=== PATIENT | female | born 1990 | race Caucasian/White ===

== ENCOUNTER 2024-05-21 23:58 | Observation (INO) | payer OTHER ==
--- NOTE | 2024-05-22 01:13 | ERPHSYRPT ---
- History of Present Illness Time Seen by Provider: 05/22/24 01:03 Historian: patient Exam Limitations: no limitations Patient Subjective Stated Complaint: Pt. stated, "I've been having upper abdominal pain for two days and i vomited a couple times. I've been trying to tough it out but it keeps getting worse." Triage Nursing Assessment: Pt. A&Ox4, Resp even unlabored. In NAD. Skin P/WD, Able to move all four ext. without difficulty, Ambulated to room without difficulty. Physician History: For the past 3 days pt has had intermittent sharp non-radiating upper abdominal pain up to a 10/10 in severity with episodes lasting up to 25 minutes and vomiting x6 without blood; last BM was yesterday & wnl. Pt denies chest pain, shortness of air, fever. Allergies/Adverse Reactions: No Known Drug Allergies Allergy (Verified 05/22/24 00:26) Home Medications: No Reportable Medications [No Reported Medications] 05/22/24 [History] Hx Tetanus, Diphtheria Vaccination/Date Given: Yes Hx Influenza Vaccination/Date Given: No Hx Pneumococcal Vaccination/Date Given: No Immunizations Up to Date: No Travel Risk - International Travel Have you traveled outside of the country in past 3 weeks: No - Emerging Infectious Disease Are you exhibiting symptoms associated with any current EIDs: Yes Symptoms: Abdominal Pain - Review of Systems Constitutional: No Fever Respiratory: No Dyspnea Cardiac: No Chest Pain Abdominal/Gastrointestinal: Abdominal Pain, Nausea, Vomiting, Diarrhea Neurological: No Headache - Past Medical History Pertinent Past Medical History: No Neurological History: No Pertinent History ENT History: No Pertinent History Cardiac History: No Pertinent History Respiratory History: No Pertinent History Endocrine Medical History: No Pertinent History Musculoskeletal History: No Pertinent History GI Medical History: No Pertinent History History: No Pertinent History Psycho-Social History: No Pertinent History Female Reproductive Disorders: No Pertinent History - Past Surgical History Past Surgical History: Yes Neuro Surgical History: No Pertinent History Cardiac: No Pertinent History Respiratory: No Pertinent History Gastrointestinal: No Pertinent History Genitourinary: No Pertinent History Musculoskeletal: No Pertinent History Female Surgical History: No Pertinent History Other Surgical History: orthopedic surgery on right leg - Female History Hx Last Menstrual Period: 04/27/2024 Hx Now: No - Social History Smoking Status: Never smoker Exposure to second hand smoke: Yes Drug Use: none - Social Determinants of Health Will the patient participate in the screening: Yes Do you worry about a steady place to live?: No Do you have any problems with any of the following?: No known problems In the past 12 months,have you had to go without utilities?: No Transportation Issues: No Has anyone in your support network made you feel unsafe?: No Have you or anyone in your house had to go without enough: No - Nursing Vital Signs Nursing Vital Signs: Initial Vital Signs Temperature 97.8 F 05/22/24 00:26 Pulse Rate 80 05/22/24 00:26 Respiratory Rate 18 05/22/24 00:26 Blood Pressure 112/70 05/22/24 00:26 O2 Sat by Pulse Oximetry 100 05/22/24 00:26 Pain Scale Pain Intensity 0 - Physical Exam General Appearance: alert Eye Exam: PERRL/EOMI Ears, Nose, Throat Exam: pharynx normal, other (cerumen occlusion of both ears) Neck Exam: normal inspection Respiratory Exam: lungs clear, airway intact Cardiovascular Exam: normal heart sounds Gastrointestinal/Abdomen Exam: No normal bowel sounds (B.S. mildly hyperactive and normotonic) Back Exam: normal inspection Extremity Exam: No pedal edema Neurologic Exam: alert, cooperative Skin Exam: warm, dry SpO2 Interpretation: normal SpO2: 100 O2 Delivery: Room Air - Course Nursing assessment & vital signs reviewed: Yes - CT Exams Abdomen/Pelvis CT Interpretation: Tele-radiologist Report (Mildly bulky left ovary, USG correlation suggested. No acute intra-abdominal abnormality seen.) Ordered Tests: Active Orders 24 hr Category Date Time Status IV Insertion STAT Care 05/22/24 01:13 Active ABDOMEN AND PELVIS W/0 CONTRAS [CT] Stat Exams 05/22/24 01:14 Completed AMYLASE Stat Lab 05/22/24 02:15 Completed CBC W DIFF Stat Lab 05/22/24 02:15 Completed CMP Stat Lab 05/22/24 02:15 Completed CULTURE,URINE Stat Lab 05/22/24 01:40 Received HCG QUALITATIVE, SERUM Stat Lab 05/22/24 02:15 Completed LIPASE Stat Lab 05/22/24 02:15 Completed MAGNESIUM Stat Lab 05/22/24 02:15 Completed UA W/RFX UR CULTURE Stat Lab 05/22/24 01:40 Completed Medication Summary Discontinued Medications Generic Name Dose Route Start Last Admin Trade Name Freq PRN Reason Stop Dose Admin Ceftriaxone Sodium 1 gm in 100 mls @ 200 mls/hr 05/22/24 02:17 05/22/24 02:43 Rocephin 1 Gm / 100 Ml Nacl IV 05/22/24 02:46 200 mls/hr STAT ONE 200 mls/hr Administration Ceftriaxone Sodium Confirm 05/22/24 02:25 Rocephin 1 Gm / 100 Ml Nacl Administered 05/22/24 02:26 Dose 1 gm in 100 mls @ ud IV .STK-MED ONE Ketorolac Tromethamine 30 mg 05/22/24 03:36 Ketorolac Tromethamine 30 Mg/Ml Inj IV 05/22/24 03:37 STAT ONE Morphine Sulfate 4 mg 05/22/24 01:13 05/22/24 02:44 Morphine Sulfate 4 Mg/Ml Injection IV 05/22/24 01:14 4 mg STAT ONE Administration Morphine Sulfate Confirm 05/22/24 02:25 Morphine Sulfate 4 Mg/Ml Injection Administered 05/22/24 02:26 Dose 4 mg .ROUTE .STK-MED ONE Ondansetron HCl 4 mg 05/22/24 01:13 05/22/24 02:43 Ondansetron Hcl 4 Mg/2 Ml Vial IV 05/22/24 01:14 4 mg STAT ONE Administration Ondansetron HCl Confirm 05/22/24 02:24 Ondansetron Hcl 4 Mg/2 Ml Vial Administered 05/22/24 02:25 Dose 4 mg .ROUTE .STK-MED ONE Lab/Rad Data: Laboratory Result Diagrams 05/22/24 02:15 05/22/24 02:15 Laboratory Results 05/22/24 05/22/24 05/22/24 Range/Units 02:15 02:15 02:15 WBC 9.6 (3.98-10.04) x10^3/uL RBC 4.52 (3.93-5.22) x10^6/uL Hgb 10.0 L (11.2-15.7) g/dL Hct 32.5 L (34.1-44.9) % MCV 71.9 L (79.4-94.8) fL MCH 22.1 L (25.6-32.2) pg MCHC 30.8 L (32.2-35.5) g/dL RDW 15.6 H (11.7-14.4) % Plt Count 359 (182-369) x10^3/uL MPV 9.7 (9.4-12.3) fL Gran % 58.8 (34.0-71.1) % Immature Gran % (Auto) 0.3 (0.001-0.429) % Nucleat RBC Rel Count 0.0 (0.00-0.2) % Eos # (Auto) 0.27 (0.04-0.36) x10^3/uL Immature Gran # (Auto) 0.03 (0.001-0.031) x10^3u/L Absolute Lymphs (auto) 2.78 (1.18-3.74) x10^3/uL Absolute Monos (auto) 0.82 (0.24-0.86) x10^3/uL Absolute Nucleated RBC 0.00 (0.00-0.012) x10^3u/L Lymphocytes % 29.0 (19.3-51.7) % Monocytes % 8.6 (4.7-12.5) % Eosinophils % 2.8 (0.7-5.8) % Basophils % 0.5 (0.1-1.2) % Absolute Granulocytes 5.64 (1.56-6.13) x10^3/uL Basophils # 0.05 (0.01-0.08) x10^3/uL Sodium 138 (135-145) mmol/L Potassium 4.1 (3.5-5.1) mmol/L Chloride 104 (98-107) mmol/L Carbon Dioxide 27 (22-30) mmol/L Anion Gap 10.8 (5-15) MEQ/L BUN 9 (7-17) mg/dL Creatinine 0.85 (0.52-1.04) mg/dL Estimated GFR 91.6 ML/MIN Glucose 104 (74-106) mg/dL Calcium 9.5 (8.4-10.2) mg/dL Magnesium 2.0 (1.6-2.3) mg/dL Total Bilirubin 0.30 (0.2-1.3) mg/dL AST 21 (14-36) U/L ALT 16 (0-35) U/L Alkaline Phosphatase 50 (38-126) U/L Serum Total Protein 7.5 (6.3-8.2) g/dL Albumin 4.4 (3.5-5.0) g/dL Amylase 58 (30-110) U/L Lipase 79 (23-300) U/L Serum HCG, Qual NEGATIVE (NEGATIVE) Urine Color (Yellow) Urine Appearance (Clear) Urine pH (4.6-8.0) Ur Specific [place] (1.005-1.030) Urine Protein (Negative) Urine Glucose (UA) (Negative) mg/dL Urine Ketones (Negative) Urine Blood (Negative) Urine Nitrite (Negative) Urine Bilirubin (Negative) Urine Urobilinogen (0.2) mg/dL Ur Leukocyte Esterase (Negative) U Hyaline Cast (Auto) (0-2) /LPF Urine Microscopic RBC (0-5) /HPF Urine Microscopic WBC (0-5) /HPF Ur Epithelial Cells (None Seen) /HPF Urine Bacteria (None Seen) /HPF Urine Culture Reflexed (NO) 05/22/24 Range/Units 01:40 WBC (3.98-10.04) x10^3/uL RBC (3.93-5.22) x10^6/uL Hgb (11.2-15.7) g/dL Hct (34.1-44.9) % MCV (79.4-94.8) fL MCH (25.6-32.2) pg MCHC (32.2-35.5) g/dL RDW (11.7-14.4) % Plt Count (182-369) x10^3/uL MPV (9.4-12.3) fL Gran % (34.0-71.1) % Immature Gran % (Auto) (0.001-0.429) % Nucleat RBC Rel Count (0.00-0.2) % Eos # (Auto) (0.04-0.36) x10^3/uL Immature Gran # (Auto) (0.001-0.031) x10^3u/L Absolute Lymphs (auto) (1.18-3.74) x10^3/uL Absolute Monos (auto) (0.24-0.86) x10^3/uL Absolute Nucleated RBC (0.00-0.012) x10^3u/L Lymphocytes % (19.3-51.7) % Monocytes % (4.7-12.5) % Eosinophils % (0.7-5.8) % Basophils % (0.1-1.2) % Absolute Granulocytes (1.56-6.13) x10^3/uL Basophils # (0.01-0.08) x10^3/uL Sodium (135-145) mmol/L Potassium (3.5-5.1) mmol/L Chloride (98-107) mmol/L Carbon Dioxide (22-30) mmol/L Anion Gap (5-15) MEQ/L BUN (7-17) mg/dL Creatinine (0.52-1.04) mg/dL Estimated GFR ML/MIN Glucose (74-106) mg/dL Calcium (8.4-10.2) mg/dL Magnesium (1.6-2.3) mg/dL Total Bilirubin (0.2-1.3) mg/dL AST (14-36) U/L ALT (0-35) U/L Alkaline Phosphatase (38-126) U/L Serum Total Protein (6.3-8.2) g/dL Albumin (3.5-5.0) g/dL Amylase (30-110) U/L Lipase (23-300) U/L Serum HCG, Qual (NEGATIVE) Urine Color Yellow (Yellow) Urine Appearance Cloudy A (Clear) Urine pH 6.5 (4.6-8.0) Ur Specific [place] 1.020 (1.005-1.030) Urine Protein Negative (Negative) Urine Glucose (UA) Negative (Negative) mg/dL Urine Ketones Negative (Negative) Urine Blood Negative (Negative) Urine Nitrite Negative (Negative) Urine Bilirubin Negative (Negative) Urine Urobilinogen 0.2 (0.2) mg/dL Ur Leukocyte Esterase Small A (Negative) U Hyaline Cast (Auto) NONE SEEN (0-2) /LPF Urine Microscopic RBC 0-2 (0-5) /HPF Urine Microscopic WBC 21-50 A (0-5) /HPF Ur Epithelial Cells Few (None Seen) /HPF Urine Bacteria Many A (None Seen) /HPF Urine Culture Reflexed YES (NO) - Progress Progress: unchanged Discussed with DrRonan: Other (Spoke with & discussed case with Dr. Reno - obs) Will see patient in: hospital (observation) Counseled pt/family regarding: lab results, diagnosis, rad results Medical Desision Making - Diagnostic Testing Diagnostic test were ordered, analyzed, and reviewed by me: Yes Radiological Interpretation: Teleradiologist Report - Departure Departure Disposition: Observation Clinical Impression: UTI (urinary tract infection), Abdominal pain, Vomiting Condition: Stable Critical Care Time: No Referrals: DOCTOR,NO FAMILY [Primary Care Provider] - Follow up/PCP as directed
[2024-05-22 02:00] LABS: Appearance Cloudy (Clear); Bacteria Many /HPF (None Seen); Bilirubin Negative (Negative); Blood Negative (Negative); Epithelial Cells Few /HPF (None Seen); Glucose, Urine Negative (Negative); Hyaline Casts NONE SEEN /LPF (0-2); Ketones Negative (Negative); Leukocyte Esterase Small (Negative); Nitrite Negative (Negative); Ph 6.5 (4.6-8.0); Protein,Urine Dip Negative (Negative); RBC 0-2 /HPF (0-5); Urobilinogen 0.2 mg/dL (0.2); WBC 21-50 /HPF (0-5)
[2024-05-22] MEDS ORDERED: Zofran 4 MG/2 ML VIAL ONE ×2 (02:24→13:15)
[2024-05-22] MEDS ORDERED: ROCEPHIN 1 GM / 100 ML NaCl 1 GM/100 ML IVPB IV ONE (02:25)
[2024-05-22] MEDS ORDERED: MORPHINE SULFATE 4 MG INJ ONE (02:25)
[2024-05-22 02:37] LABS: Absolute Neutrophil Ct (ANC) 5.64 x10^3/uL (1.56-6.13); BASOPHIL % 0.5 % (0.1-1.2); Basophil (Absolute #) 0.05 x10^3/uL (0.01-0.08); Eosinophil % 2.8 % (0.7-5.8); Eosinophil (Absolute #) 0.27 x10^3/uL (0.04-0.36); Hematocrit 32.5 % (34.1-44.9); IMMATURE GRAN # 0.03 x10^3u/L (0.001-0.031); IMMATURE GRAN % 0.3 % (0.001-0.429); Lymphocyte (Absolute #) 2.78 x10^3/uL (1.18-3.74); Mean Cell Volume 71.9 fL (79.4-94.8); Mean Corpuscular Hemoglobin 22.1 pg (25.6-32.2); Mean Corpuscular Hgb Concent. 30.8 g/dL (32.2-35.5); Mean Platelet Volume 9.7 fL (9.4-12.3); Monocyte (Absolute #) 0.82 x10^3/uL (0.24-0.86); Monocytes % 8.6 % (4.7-12.5); Neutrophil % 58.8 % (34.0-71.1); Platelet Count 359 x10^3/uL (182-369); Red Blood Count 4.52 x10^6/uL (3.93-5.22); Red Cell Distribution Width 15.6 % (11.7-14.4); White Blood Count 9.6 x10^3/uL (3.98-10.04)
[2024-05-22 02:40] LABS: HCG SERUM TEST NEGATIVE (NEGATIVE)
[2024-05-22] MEDS: Zofran 4 MG/2 ML VIAL IV ONE (02:43)
[2024-05-22] MEDS: ROCEPHIN 1 GM / 100 ML NaCl 1 GM/100 ML IVPB IV ONE (02:43)
[2024-05-22 02:44] LABS: ALBUMIN 4.4 g/dL (3.5-5.0); ANION GAP 10.8 MEQ/L (5-15); BILIRUBIN,TOTAL 0.3 mg/dL (0.2-1.3); Calcium 9.5 mg/dL (8.4-10.2); Creatinine 1 0.85 mg/dL (0.52-1.04); EST GLOMERULAR FILTRATION RATE 91.6 ML/MIN; Potassium 4.1 mmol/L (3.5-5.1); Total Protein 7.5 g/dL (6.3-8.2)
[2024-05-22] MEDS: MORPHINE SULFATE 4 MG INJ IV ONE (02:44)
--- NOTE | 2024-05-22 03:17 | XRAY ---
CLINICAL HISTORY: upper abdominal pain COMPARISON: None TECHNIQUE: Contiguous axial images were obtained from the level of the diaphragm to the pubic symphysis without intravenous or oral contrast. Coronal and sagittal reconstructions were likewise performed and indicated to increase the sensitivity for detecting clinically relevant pathology. CT scan was performed according to ALARA (as low as reasonable achievable). FINDINGS: The visualized lung bases are clear. Evaluation of the abdominal and pelvic visceral organs is limited without intravenous contrast. The unenhanced liver, spleen, pancreas, and adrenal glands are grossly unremarkable. The gallbladder is present. The kidneys are normal in size and attenuation without obvious calcification. There is no hydronephrosis or perinephric stranding. The ureters are normal in caliber. No adenopathy or fluid collections are seen. No evidence of focal or diffuse bowel wall thickening or evidence of bowel obstruction is seen. The appendix is visualized in the right lower quadrant and appears within normal limits. The aorta is normal in caliber. The urinary bladder is normal in contour. Pelvic viscera are grossly unremarkable. Mildly bulky left ovary. No aggressive appearing osseous lesions are identified. IMPRESSION: Mildly bulky left ovary, USG correlation suggested. No acute intra-abdominal abnormality seen. Electronically Signed by: José Christine MD. (05/22/2024 03:13:52 EST)
[2024-05-22] MEDS ORDERED: TORAdol 30 mg Injection ONE ×2 (03:49→13:15)
[2024-05-22] MEDS: TORAdol 30 mg Injection IV ONE (03:50)
[2024-05-22] MEDS ORDERED: Zofran 4 MG/2 ML VIAL IV PRN (05:48)
[2024-05-22] MEDS: Sodium Chloride 0.9% 1000 ML 1,000 ML IV SCH (06:21)
--- NOTE | 2024-05-22 06:33 | PCM.HP ---
History of Present Illness - Chief Complaint Chief Complaint: Abdominal Pain, Vomiting, UTI Date: 05/22/24 History of Present Illness: 34 years old very pleasant 29 with no significant past medical history came to the ER complaining of upper abdominal pain for last 3 days with nausea vomiting that is intractable. Patient was not able to keep anything down. He denied having any constipation/diarrhea. Denied having any fever no dysuria increased frequency hematuria reported. In the ER the initial blood pressure was 112/70 she was afebrile with pulse of 80. As well as blood workup concerned all came out essentially negative except urine was positive for too many WBCs and small leukocyte esterase. CT abdomen pelvis was essentially negative except some left bulky adnexal area that needs pelvic ultrasound. Patient admitted for further evaluation and supportive therapy for ongoing vomiting. - Review of Systems All Other Systems: Reviewed and Negative (14 systems reviewed and marked ve except mentioned in [facility]) Medications & Allergies Home Medications: Home Medication List No Reportable Medications [No Reported Medications] 05/22/24 [History Confirmed 05/22/24] Allergies/Adverse Reactions: Allergies Allergy/AdvReac Type Severity Reaction Status Date / Time No Known Drug Allergies Allergy Verified 05/22/24 00:26 - Past Medical History Past Medical History: No Neurological History: No Pertinent History ENT History: No Pertinent History Cardiac History: No Pertinent History Respiratory History: No Pertinent History Endocrine Medical History: No Pertinent History Musculoskelatal History: No Pertinent History GI Medical History: No Pertinent History History: No Pertinent History Pyscho-Social History: No Pertinent History Reproductive Disorders: No Pertinent History - Female History Hx Last Menstrual Period: 04/27/2024 Are you now?: No - Past Surgical History Past Surgical History: Yes Neuro Surgical History: No Pertinent History Cardiac History: No Pertinent History Respiratory Surgery: No Pertinent History GI Surgical History: No Pertinent History Genitourinary Surgical Hx: No Pertinent History Musculskeletal Surgical Hx: No Pertinent History Female Surgical History: Tubal Ligation Other Surgical History: orthopedic surgery on right leg Significant Family History: no pertinent family hx - Social History Smoking Status: Never smoker Exposure to second hand smoke: Yes Alcohol: None Drug Use: none - Social Determinants of Health Will the patient participate in the screening: Yes Do you worry about a steady place to live?: No Do you have any problems with any of the following?: No known problems In the past 12 months,have you had to go without utilities?: No Have you or anyone in your house had to go without enough: No Transportation Issues: No Has anyone in your support network made you feel unsafe?: No Does the patient want assistance with any of the above?: No - Physical Exam Vital Signs: Vital Signs - 24 hr Temp Pulse Resp BP BP Pulse Ox 05/22/24 05:52 97.7 F 72 17 112/62 100 05/22/24 05:50 97.7 F 72 17 112/62 100 05/22/24 05:48 97.7 F 72 17 112/62 100 05/22/24 05:30 114/58 100 05/22/24 05:00 65 16 98/59 100 05/22/24 04:30 101/58 05/22/24 04:00 68 17 102/62 99 05/22/24 03:50 100 05/22/24 03:31 99/52 100 05/22/24 03:00 69 17 109/67 100 05/22/24 02:55 114/60 100 05/22/24 02:30 100/65 99 05/22/24 02:00 71 17 104/74 100 05/22/24 01:31 90/69 100 05/22/24 01:00 78 18 101/72 100 05/22/24 00:30 105/70 99 05/22/24 00:26 97.8 F 80 18 112/70 100 Additional Findings: 05/22/24 06:3 HEENT Young aged, average built in no distress NECK Supple,no thyromegaly, CVS S1+S2 + 0, no murmers RESP Bilateral equal air entry without Crepts/Wheezes heard GIT Soft non tender,non distended Skin, No rah, no Bruises LEGS No Edema PSYCH Normal,mood, judgement and insight NEURO AOX3, no focal deficit Results - Labs Lab/Micro Results: Lab Results-Last 24 Hours 05/22/24 05/22/24 05/22/24 Range/Units 01:40 02:15 02:15 WBC 9.6 (3.98-10.04) x10^3/uL RBC 4.52 (3.93-5.22) x10^6/uL Hgb 10.0 L (11.2-15.7) g/dL Hct 32.5 L (34.1-44.9) % MCV 71.9 L (79.4-94.8) fL MCH 22.1 L (25.6-32.2) pg MCHC 30.8 L (32.2-35.5) g/dL RDW 15.6 H (11.7-14.4) % Plt Count 359 (182-369) x10^3/uL MPV 9.7 (9.4-12.3) fL Gran % 58.8 (34.0-71.1) % Immature Gran % (Auto) 0.3 (0.001-0.429) % Nucleat RBC Rel Count 0.0 (0.00-0.2) % Eos # (Auto) 0.27 (0.04-0.36) x10^3/uL Immature Gran # (Auto) 0.03 (0.001-0.031) x10^3u/L Absolute Lymphs (auto) 2.78 (1.18-3.74) x10^3/uL Absolute Monos (auto) 0.82 (0.24-0.86) x10^3/uL Absolute Nucleated RBC 0.00 (0.00-0.012) x10^3u/L Lymphocytes % 29.0 (19.3-51.7) % Monocytes % 8.6 (4.7-12.5) % Eosinophils % 2.8 (0.7-5.8) % Basophils % 0.5 (0.1-1.2) % Absolute Granulocytes 5.64 (1.56-6.13) x10^3/uL Basophils # 0.05 (0.01-0.08) x10^3/uL Sodium 138 (135-145) mmol/L Potassium 4.1 (3.5-5.1) mmol/L Chloride 104 (98-107) mmol/L Carbon Dioxide 27 (22-30) mmol/L Anion Gap 10.8 (5-15) MEQ/L BUN 9 (7-17) mg/dL Creatinine 0.85 (0.52-1.04) mg/dL Estimated GFR 91.6 ML/MIN Glucose 104 (74-106) mg/dL Calcium 9.5 (8.4-10.2) mg/dL Magnesium 2.0 (1.6-2.3) mg/dL Total Bilirubin 0.30 (0.2-1.3) mg/dL AST 21 (14-36) U/L ALT 16 (0-35) U/L Alkaline Phosphatase 50 (38-126) U/L Serum Total Protein 7.5 (6.3-8.2) g/dL Albumin 4.4 (3.5-5.0) g/dL Amylase 58 (30-110) U/L Lipase 79 (23-300) U/L Serum HCG, Qual (NEGATIVE) Urine Color Yellow (Yellow) Urine Appearance Cloudy A (Clear) Urine pH 6.5 (4.6-8.0) Ur Specific [place] 1.020 (1.005-1.030) Urine Protein Negative (Negative) Urine Glucose (UA) Negative (Negative) mg/dL Urine Ketones Negative (Negative) Urine Blood Negative (Negative) Urine Nitrite Negative (Negative) Urine Bilirubin Negative (Negative) Urine Urobilinogen 0.2 (0.2) mg/dL Ur Leukocyte Esterase Small A (Negative) U Hyaline Cast (Auto) NONE SEEN (0-2) /LPF Urine Microscopic RBC 0-2 (0-5) /HPF Urine Microscopic WBC 21-50 A (0-5) /HPF Ur Epithelial Cells Few (None Seen) /HPF Urine Bacteria Many A (None Seen) /HPF Urine Culture Reflexed YES (NO) 05/22/24 Range/Units 02:15 WBC (3.98-10.04) x10^3/uL RBC (3.93-5.22) x10^6/uL Hgb (11.2-15.7) g/dL Hct (34.1-44.9) % MCV (79.4-94.8) fL MCH (25.6-32.2) pg MCHC (32.2-35.5) g/dL RDW (11.7-14.4) % Plt Count (182-369) x10^3/uL MPV (9.4-12.3) fL Gran % (34.0-71.1) % Immature Gran % (Auto) (0.001-0.429) % Nucleat RBC Rel Count (0.00-0.2) % Eos # (Auto) (0.04-0.36) x10^3/uL Immature Gran # (Auto) (0.001-0.031) x10^3u/L Absolute Lymphs (auto) (1.18-3.74) x10^3/uL Absolute Monos (auto) (0.24-0.86) x10^3/uL Absolute Nucleated RBC (0.00-0.012) x10^3u/L Lymphocytes % (19.3-51.7) % Monocytes % (4.7-12.5) % Eosinophils % (0.7-5.8) % Basophils % (0.1-1.2) % Absolute Granulocytes (1.56-6.13) x10^3/uL Basophils # (0.01-0.08) x10^3/uL Sodium (135-145) mmol/L Potassium (3.5-5.1) mmol/L Chloride (98-107) mmol/L Carbon Dioxide (22-30) mmol/L Anion Gap (5-15) MEQ/L BUN (7-17) mg/dL Creatinine (0.52-1.04) mg/dL Estimated GFR ML/MIN Glucose (74-106) mg/dL Calcium (8.4-10.2) mg/dL Magnesium (1.6-2.3) mg/dL Total Bilirubin (0.2-1.3) mg/dL AST (14-36) U/L ALT (0-35) U/L Alkaline Phosphatase (38-126) U/L Serum Total Protein (6.3-8.2) g/dL Albumin (3.5-5.0) g/dL Amylase (30-110) U/L Lipase (23-300) U/L Serum HCG, Qual NEGATIVE (NEGATIVE) Urine Color (Yellow) Urine Appearance (Clear) Urine pH (4.6-8.0) Ur Specific [place] (1.005-1.030) Urine Protein (Negative) Urine Glucose (UA) (Negative) mg/dL Urine Ketones (Negative) Urine Blood (Negative) Urine Nitrite (Negative) Urine Bilirubin (Negative) Urine Urobilinogen (0.2) mg/dL Ur Leukocyte Esterase (Negative) U Hyaline Cast (Auto) (0-2) /LPF Urine Microscopic RBC (0-5) /HPF Urine Microscopic WBC (0-5) /HPF Ur Epithelial Cells (None Seen) /HPF Urine Bacteria (None Seen) /HPF Urine Culture Reflexed (NO) - Radiology Impressions Radiology Exams & Impressions: Radiology Procedures Category Date Time Status ABDOMEN AND PELVIS W/0 CONTRAS [CT] Stat Exams 05/22/24 01:14 Completed ABDOMINAL-LIMITED [US] Routine Exams 05/22/24 05:48 Ordered Assessment/Plan (1) Abdominal pain Current Visit: Yes Status: Acute Code(s): R10.9 - UNSPECIFIED ABDOMINAL PAIN (2) UTI (urinary tract infection) Current Visit: Yes Status: Acute Code(s): N39.0 - URINARY TRACT INFECTION, SITE NOT SPECIFIED (3) Vomiting Current Visit: Yes Status: Acute Code(s): R11.10 - VOMITING, UNSPECIFIED Telemedicine Encounter - Telemedicine Encounter Telemedicine Encounter: The entirety of this encounter was performed via Telemedicine"This visit was performed using real-time audio and video connection between my location and thepatients locationwith the assistance of a surrogateat the patients location. Written or verbal consent was obtained from the patient/guardian to perform this visit using[employer]mess[employer]'s Extra technology. Any patient questions regarding the telemedicine interaction were answered. Acute abdominal pain with intractable vomiting LFTs lipase unremarkable CT abdomen pelvis negative Will check right upper quadrant ultrasound Will add pantoprazole for possible gastritis Supportive therapy with IV fluids and antibiotics Urinary tract infection Urine positive for too many WBCs and leukocyte esterase Continue antibiotics Keep following up cultures Questionable left adnexa upon imaging pelvic ultrasound ordered DVT prophylaxis SCD CODE STATUS full Discharge planning pending clinical stability. Hopefully patient able to go home soon once symptom gets better controlled I have reviewed patient lab vitals and imaging in detail all question and concerns were addressed
[2024-05-22] MEDS: MORPHINE SULFATE 2 MG INJ IV PRN (06:38)
[2024-05-22] MEDS: PROTONIX 40 MG IV IV SCH (09:10)
--- NOTE | 2024-05-22 09:13 | XRAY ---
Indication: Abdominal pain. Negative same day CT abdomen/pelvis exam. Two-dimensional right upper quadrant abdominal sonogram performed. Comparison: None Visualized liver and pancreas are homogeneous in echogenicity. No organomegaly or free fluid. Visualized gallbladder normally distended with a few tiny gallstones/gravel. No abnormal gallbladder wall thickening or pericholecystic fluid. Common bile duct measures 3.4 mm. No intrahepatic biliary distention. Right kidney measures 10.1 x 4.0 x 5.3 cm and sonographically normal. Impression: Tiny gallstones/gravel. Negative for acute cholecystitis.
--- NOTE | 2024-05-22 09:17 | XRAY ---
Indication: Abnormal left ovary on same-day CT abdomen/pelvis exam. Two-dimensional transvaginal pelvic sonogram performed. Comparison: None Uterus retroflexed measuring 7.5 x 5.1 x 5.0 cm. No focal solid/cystic uterine mass. Endometrial stripe measures 8 mm with small endometrial cavity fluid collection at level of fundus up to 6 mm. No endometrial cavity mass. Right ovary measures 3.2 x 1.8 x 2.4 cm and left measures 3.9 x 2.6 x 2.8 cm. Normal follicular cysts and perfusion bilaterally. Left ovary demonstrates 2.5 cm cyst with low-level echoes. No suspicious solid adnexal mass or free fluid. Impression: 1. Small nonspecific endometrial fluid collection. Correlate with patient's menstrual cycle. 2. Hemorrhagic/complex cyst 2.5 cm left ovary cyst. Recommend follow-up following at least 2 menstrual cycles. 3. Remaining transvaginal pelvic sonogram is negative.
[2024-05-22] MEDS: PIPERACILLIN/TAZOBACTAM 3.375 GM in Sodium Chloride 100ML MINI-BAG PLUS 100 ML IV SCH (11:55)
[2024-05-22 12:02] VITALS: RESP 18; TEMP 96.9
--- NOTE | 2024-05-22 12:12 | PCM.CONS ---
History of Present Illness - Reason for Consult Chief Complaint: Abdominal Pain, Vomiting, UTI Requesting Provider: MARY GAVNI MD Consulting Provider: ZEINA CORNELL MD History of Present Illness: is a 34 year old female. hx per chart review and d/w pt 34yo previously healthy. denies prior biliary colic but everyone in her family has had their gallbladders out. with intermittent RUQ abdominal pain last few days unclear exacerbating factor. previously would get better but since last night constant severe. to ed workup with gallstones ovarian cyst. pain constant overnight. no emesis here. + flatus. "- History of Present Illness Time Seen by Provider: 05/22/24 01:03 Historian: patient Exam Limitations: no limitations Patient Subjective Stated Complaint: Pt. stated, "I've been having upper abdominal pain for two days and i vomited a couple times. I've been trying to tough it out but it keeps getting worse." Triage Nursing Assessment: Pt. A&Ox4, Resp even unlabored. In NAD. Skin P/WD, Able to move all four ext. without difficulty, Ambulated to room without difficulty. Physician History: For the past 3 days pt has had intermittent sharp non-radiating upper abdominal pain up to a 10/10 in severity with episodes lasting up to 25 minutes and v omiting x6 without blood; last BM was yesterday & wnl. Pt denies chest pain, shortness of air, fever. Allergies/Adverse Reactions: No Known Drug Allergies Allergy (Verified 05/22/24 00:26) Home Medications: No Reportable Medications [No Reported Medications] 05/22/24 [History] Hx Tetanus, Diphtheria Vaccination/Date Given: Yes Hx Influenza Vaccination/Date Given: No Hx Pneumococcal Vaccination/Date Given: No Immunizations Up to Date: No Travel Risk - International Travel Have you traveled outside of the country in past 3 weeks: No - Emerging Infectious Disease Are you exhibiting symptoms associated with any current EIDs: Yes Symptoms: Abdominal Pain - Review of Systems Constitutional: No Fever Respiratory: No Dyspnea Cardiac: No Chest Pain Abdominal/Gastrointestinal: Abdominal Pain, Nausea, Vomiting, Diarrhea Neurological: No Headache - Past Medical History Pertinent Past Medical History: No Neurological History: No Pertinent History ENT History: No Pertinent History Cardiac History: No Pertinent History Respiratory History: No Pertinent History Endocrine Medical History: No Pertinent History Musculoskeletal History: No Pertinent History GI Medical History: No Pertinent History History: No Pertinent History Psycho-Social History: No Pertinent History Female Reproductive Disorders: No Pertinent History - Past Surgical History Past Surgical History: Yes Neuro Surgical History: No Pertinent History Cardiac: No Pertinent History Respiratory: No Pertinent History Gastrointestinal: No Pertinent History Genitourinary: No Pertinent History Musculoskeletal: No Pertinent History Female Surgical History: No Pertinent History Other Surgical History: orthopedic surgery on right leg - Female History Hx Last Menstrual Period: 04/27/2024 Hx Now: No - Social History Smoking Status: Never smoker Exposure to second hand smoke: Yes Drug Use: none - Social Determinants of Health Will the patient participate in the screening: Yes Do you worry about a steady place to live?: No Do you have any problems with any of the following?: No known problems In the past 12 months,have you had to go without utilities?: No Transportation Issues: No Has anyone in your support network made you feel unsafe?: No Have you or anyone in your house had to go without enough: No" Medications & Allergies Home Medications: Home Medication List No Reportable Medications [No Reported Medications] 05/22/24 [History Confirmed 05/22/24] Allergies/Adverse Reactions: Allergies Allergy/AdvReac Type Severity Reaction Status Date / Time No Known Drug Allergies Allergy Verified 05/22/24 00:26 - Past Medical History Past Medical History: No Neurological History: No Pertinent History ENT History: No Pertinent History Cardiac History: No Pertinent History Respiratory History: No Pertinent History Endocrine Medical History: No Pertinent History Musculoskelatal History: No Pertinent History GI Medical History: No Pertinent History History: No Pertinent History Pyscho-Social History: No Pertinent History Reproductive Disorders: No Pertinent History - Female History Hx Last Menstrual Period: 04/27/2024 Are you now?: No - Past Surgical History Past Surgical History: Yes Neuro Surgical History: No Pertinent History Cardiac History: No Pertinent History Respiratory Surgery: No Pertinent History GI Surgical History: No Pertinent History Genitourinary Surgical Hx: No Pertinent History Musculskeletal Surgical Hx: No Pertinent History Female Surgical History: Tubal Ligation Other Surgical History: orthopedic surgery on right leg Significant Family History: no pertinent family hx - Social History Smoking Status: Never smoker Exposure to second hand smoke: Yes Alcohol: None Drug Use: none - Social Determinants of Health Will the patient participate in the screening: Yes Do you worry about a steady place to live?: No Do you have any problems with any of the following?: No known problems In the past 12 months,have you had to go without utilities?: No Have you or anyone in your house had to go without enough: No Transportation Issues: No Has anyone in your support network made you feel unsafe?: No Does the patient want assistance with any of the above?: No - Physical Exam Vital Signs: Vital Signs - 24 hr Temp Pulse Resp BP BP Pulse Ox 05/22/24 12:00 96.9 F 60 18 111/57 96 05/22/24 05:52 97.7 F 72 17 112/62 100 05/22/24 05:50 97.7 F 72 17 112/62 100 05/22/24 05:48 97.7 F 72 17 112/62 100 05/22/24 05:30 114/58 100 05/22/24 05:00 65 16 98/59 100 05/22/24 04:30 101/58 05/22/24 04:00 68 17 102/62 99 05/22/24 03:50 100 05/22/24 03:31 99/52 100 05/22/24 03:00 69 17 109/67 100 05/22/24 02:55 114/60 100 05/22/24 02:30 100/65 99 05/22/24 02:00 71 17 104/74 100 05/22/24 01:31 90/69 100 05/22/24 01:00 78 18 101/72 100 05/22/24 00:30 105/70 99 05/22/24 00:26 97.8 F 80 18 112/70 100 Additional Findings: 05/22/24 12:10 nad noscleral icterus neck symmetric nonlabroed resps rrr nd, soft, ttp ruq + hammer. no edema gcs 15 Results - Labs Lab/Micro Results: Lab Results-Last 24 Hours 05/22/24 05/22/24 05/22/24 Range/Units 01:40 02:15 02:15 WBC 9.6 (3.98-10.04) x10^3/uL RBC 4.52 (3.93-5.22) x10^6/uL Hgb 10.0 L (11.2-15.7) g/dL Hct 32.5 L (34.1-44.9) % MCV 71.9 L (79.4-94.8) fL MCH 22.1 L (25.6-32.2) pg MCHC 30.8 L (32.2-35.5) g/dL RDW 15.6 H (11.7-14.4) % Plt Count 359 (182-369) x10^3/uL MPV 9.7 (9.4-12.3) fL Gran % 58.8 (34.0-71.1) % Immature Gran % (Auto) 0.3 (0.001-0.429) % Nucleat RBC Rel Count 0.0 (0.00-0.2) % Eos # (Auto) 0.27 (0.04-0.36) x10^3/uL Immature Gran # (Auto) 0.03 (0.001-0.031) x10^3u/L Absolute Lymphs (auto) 2.78 (1.18-3.74) x10^3/uL Absolute Monos (auto) 0.82 (0.24-0.86) x10^3/uL Absolute Nucleated RBC 0.00 (0.00-0.012) x10^3u/L Lymphocytes % 29.0 (19.3-51.7) % Monocytes % 8.6 (4.7-12.5) % Eosinophils % 2.8 (0.7-5.8) % Basophils % 0.5 (0.1-1.2) % Absolute Granulocytes 5.64 (1.56-6.13) x10^3/uL Basophils # 0.05 (0.01-0.08) x10^3/uL Sodium 138 (135-145) mmol/L Potassium 4.1 (3.5-5.1) mmol/L Chloride 104 (98-107) mmol/L Carbon Dioxide 27 (22-30) mmol/L Anion Gap 10.8 (5-15) MEQ/L BUN 9 (7-17) mg/dL Creatinine 0.85 (0.52-1.04) mg/dL Estimated GFR 91.6 ML/MIN Glucose 104 (74-106) mg/dL Calcium 9.5 (8.4-10.2) mg/dL Magnesium 2.0 (1.6-2.3) mg/dL Total Bilirubin 0.30 (0.2-1.3) mg/dL AST 21 (14-36) U/L ALT 16 (0-35) U/L Alkaline Phosphatase 50 (38-126) U/L Serum Total Protein 7.5 (6.3-8.2) g/dL Albumin 4.4 (3.5-5.0) g/dL Amylase 58 (30-110) U/L Lipase 79 (23-300) U/L Serum HCG, Qual (NEGATIVE) Urine Color Yellow (Yellow) Urine Appearance Cloudy A (Clear) Urine pH 6.5 (4.6-8.0) Ur Specific [place] 1.020 (1.005-1.030) Urine Protein Negative (Negative) Urine Glucose (UA) Negative (Negative) mg/dL Urine Ketones Negative (Negative) Urine Blood Negative (Negative) Urine Nitrite Negative (Negative) Urine Bilirubin Negative (Negative) Urine Urobilinogen 0.2 (0.2) mg/dL Ur Leukocyte Esterase Small A (Negative) U Hyaline Cast (Auto) NONE SEEN (0-2) /LPF Urine Microscopic RBC 0-2 (0-5) /HPF Urine Microscopic WBC 21-50 A (0-5) /HPF Ur Epithelial Cells Few (None Seen) /HPF Urine Bacteria Many A (None Seen) /HPF Urine Culture Reflexed YES (NO) 05/22/24 Range/Units 02:15 WBC (3.98-10.04) x10^3/uL RBC (3.93-5.22) x10^6/uL Hgb (11.2-15.7) g/dL Hct (34.1-44.9) % MCV (79.4-94.8) fL MCH (25.6-32.2) pg MCHC (32.2-35.5) g/dL RDW (11.7-14.4) % Plt Count (182-369) x10^3/uL MPV (9.4-12.3) fL Gran % (34.0-71.1) % Immature Gran % (Auto) (0.001-0.429) % Nucleat RBC Rel Count (0.00-0.2) % Eos # (Auto) (0.04-0.36) x10^3/uL Immature Gran # (Auto) (0.001-0.031) x10^3u/L Absolute Lymphs (auto) (1.18-3.74) x10^3/uL Absolute Monos (auto) (0.24-0.86) x10^3/uL Absolute Nucleated RBC (0.00-0.012) x10^3u/L Lymphocytes % (19.3-51.7) % Monocytes % (4.7-12.5) % Eosinophils % (0.7-5.8) % Basophils % (0.1-1.2) % Absolute Granulocytes (1.56-6.13) x10^3/uL Basophils # (0.01-0.08) x10^3/uL Sodium (135-145) mmol/L Potassium (3.5-5.1) mmol/L Chloride (98-107) mmol/L Carbon Dioxide (22-30) mmol/L Anion Gap (5-15) MEQ/L BUN (7-17) mg/dL Creatinine (0.52-1.04) mg/dL Estimated GFR ML/MIN Glucose (74-106) mg/dL Calcium (8.4-10.2) mg/dL Magnesium (1.6-2.3) mg/dL Total Bilirubin (0.2-1.3) mg/dL AST (14-36) U/L ALT (0-35) U/L Alkaline Phosphatase (38-126) U/L Serum Total Protein (6.3-8.2) g/dL Albumin (3.5-5.0) g/dL Amylase (30-110) U/L Lipase (23-300) U/L Serum HCG, Qual NEGATIVE (NEGATIVE) Urine Color (Yellow) Urine Appearance (Clear) Urine pH (4.6-8.0) Ur Specific [place] (1.005-1.030) Urine Protein (Negative) Urine Glucose (UA) (Negative) mg/dL Urine Ketones (Negative) Urine Blood (Negative) Urine Nitrite (Negative) Urine Bilirubin (Negative) Urine Urobilinogen (0.2) mg/dL Ur Leukocyte Esterase (Negative) U Hyaline Cast (Auto) (0-2) /LPF Urine Microscopic RBC (0-5) /HPF Urine Microscopic WBC (0-5) /HPF Ur Epithelial Cells (None Seen) /HPF Urine Bacteria (None Seen) /HPF Urine Culture Reflexed (NO) - Radiology Impressions Radiology Exams & Impressions: Radiology Procedures Category Date Time Status ABDOMEN AND PELVIS W/0 CONTRAS [CT] Stat Exams 05/22/24 01:14 Completed ABDOMINAL-LIMITED [US] Routine Exams 05/22/24 05:48 Completed PELVIS TRANS VAGINAL [US] Routine Exams 05/22/24 06:38 Completed Assessment/Plan (1) Abdominal pain Current Visit: Yes Status: Acute Assessment & Plan: 34yo with acute cholecystitis. constant pain over 8 hours. imaging with gallstones hammer on exam. ct images personally reviewed also has a left ovarian cyst no pain there at all. nonobstructive labs. discussed with patient cholecystectomy vs hida/attempt nonop or outpatient and she just wants to proceed with cholecystectomy. -lap mirtha possible open gen. Code(s): R10.9 - UNSPECIFIED ABDOMINAL PAIN
[2024-05-22] MEDS ORDERED: Lactated Ringers 1,000 ML IV ONE (12:45)
[2024-05-22] MEDS: MEFOXIN 2 GM PREMIX** 2 GM/50 ML ML IV SCH (12:51)
[2024-05-22] MEDS: Lactated Ringers 1,000 ML IV SCH (12:51)
[2024-05-22] MEDS ORDERED: Sensorcaine 0.25% 10 ML ONE (13:03)
[2024-05-22] MEDS ORDERED: Decadron 4 MG INJ ONE (13:15)
[2024-05-22] MEDS ORDERED: BRIDION 200MG/2ML IV ONE (13:15)
[2024-05-22] MEDS ORDERED: ROCURONIUM BROMIDE IV ONE (13:15)
[2024-05-22] MEDS ORDERED: SUBLIMAZE 100 MCG/2 ML ONE (13:15)
[2024-05-22] MEDS ORDERED: Xylocaine-Mpf 2% 5 Ml Vial ONE (13:15)
[2024-05-22] MEDS ORDERED: PHENYLEPHRINE HCL ONE (13:25)
[2024-05-22] MEDS ORDERED: MORPHINE SULFATE 2 MG INJ ONE (14:31)
[2024-05-22 15:32] VITALS: O2SAT 95
--- NOTE | 2024-05-22 15:59 | PCM.DS ---
Discharge Summary Date of Admission: 05/22/24 05:47 Date of Discharge: 05/22/24 Admitting Physician: MARY GAVIN MD Consults: Consults on Case 05/22/24 10:01 Consult Surgery ROUTINE Primary Care Provider: NO FAMILY DOCTOR Allergies Allergies No Known Drug Allergies Allergy (Verified 05/22/24 00:26) Hospital Summary - Hospital Course Hospital Course: 34 years old very pleasant 29 with no significant past medical history came to the ER complaining of upper abdominal pain for last 3 days with nausea vomiting that is intractable. Patient was not able to keep anything down. He denied having any constipation/diarrhea. Denied having any fever no dysuria increased frequency hematuria reported. In the ER the initial blood pressure was 112/70 she was afebrile with pulse of 80. As well as blood workup concerned all came out essentially negative except urine was positive for too many WBCs and small leukocyte esterase. CT abdomen pelvis was essentially negative except some left bulky adnexal area. Trans-vaginal US with left ovarian cyst. Advised OP follow up with Gynocology. Abdominal US with gallstones. Patient admitted for further evaluation and supportive therapy for ongoing vomiting. Surgery consulted and uncomplicated Lap cholecystectomy performed 05/22/24. Patient is cleared for discharge from surgery standpoint once she meets discharge criteria. Will send home with cefdinir for possible UTI and pain medications. Advised follow up with surgery and PCP. Discharge Note New Diagnosis: Acute cholecystitis/ UTI New Medications: Cefdinir/[place] Follow Up: surgery/pcp Outpatient testing to order: UA repeat for UTI resolution Latest Assessment & Plan Acute abdominal pain with intractable vomiting LFTs lipase unremarkable CT abdomen pelvis negative Right upper quadrant ultrasound - with gallstones Will add pantoprazole for possible gastritis Supportive therapy with IV fluids and antibiotics Urinary tract infection Urine positive for too many WBCs and leukocyte esterase -Zosyn IP - continue with cefdinir OP Continue antibiotics Keep following up cultures Questionable left adnexa upon imaging pelvic ultrasound ordered Acute cholecystitis -GB US showing gallstones -Surgery consulted and lap cholecystectomy performed -Cleared from surgical standpoint once dc criteria met I spent 35 minutes [id number] with the patient on the day of discharge performing discharge exam, discussing hospital stay and discharge instructions with patient and caregivers, preparation of discharge records, prescriptions & referral forms and addressing any questions/concerns the patient had as documented above. - Vitals & Intake/Output Vital Signs: Vital Signs Temperature 96.9 F 05/22/24 12:18 Pulse Rate 61 05/22/24 15:30 Respiratory Rate 18 05/22/24 12:18 Blood Pressure 163/57 05/22/24 15:30 O2 Sat by Pulse Oximetry 95 05/22/24 15:30 Intake & Output: Intake & Output 05/20/24 05/21/24 05/22/24 05/23/24 11:59 11:59 11:59 11:59 Intake Total 0 0 Balance 0 0 Weight 91.6 kg 91.6 kg - Lab Result Diagrams: 05/22/24 02:15 05/22/24 02:15 Lab Results-Last 24 Hrs: Lab Results-Last 24 Hours 05/22/24 05/22/24 05/22/24 Range/Units 01:40 02:15 02:15 WBC 9.6 (3.98-10.04) x10^3/uL RBC 4.52 (3.93-5.22) x10^6/uL Hgb 10.0 L (11.2-15.7) g/dL Hct 32.5 L (34.1-44.9) % MCV 71.9 L (79.4-94.8) fL MCH 22.1 L (25.6-32.2) pg MCHC 30.8 L (32.2-35.5) g/dL RDW 15.6 H (11.7-14.4) % Plt Count 359 (182-369) x10^3/uL MPV 9.7 (9.4-12.3) fL Gran % 58.8 (34.0-71.1) % Immature Gran % (Auto) 0.3 (0.001-0.429) % Nucleat RBC Rel Count 0.0 (0.00-0.2) % Eos # (Auto) 0.27 (0.04-0.36) x10^3/uL Immature Gran # (Auto) 0.03 (0.001-0.031) x10^3u/L Absolute Lymphs (auto) 2.78 (1.18-3.74) x10^3/uL Absolute Monos (auto) 0.82 (0.24-0.86) x10^3/uL Absolute Nucleated RBC 0.00 (0.00-0.012) x10^3u/L Lymphocytes % 29.0 (19.3-51.7) % Monocytes % 8.6 (4.7-12.5) % Eosinophils % 2.8 (0.7-5.8) % Basophils % 0.5 (0.1-1.2) % Absolute Granulocytes 5.64 (1.56-6.13) x10^3/uL Basophils # 0.05 (0.01-0.08) x10^3/uL Sodium 138 (135-145) mmol/L Potassium 4.1 (3.5-5.1) mmol/L Chloride 104 (98-107) mmol/L Carbon Dioxide 27 (22-30) mmol/L Anion Gap 10.8 (5-15) MEQ/L BUN 9 (7-17) mg/dL Creatinine 0.85 (0.52-1.04) mg/dL Estimated GFR 91.6 ML/MIN Glucose 104 (74-106) mg/dL Calcium 9.5 (8.4-10.2) mg/dL Magnesium 2.0 (1.6-2.3) mg/dL Total Bilirubin 0.30 (0.2-1.3) mg/dL AST 21 (14-36) U/L ALT 16 (0-35) U/L Alkaline Phosphatase 50 (38-126) U/L Serum Total Protein 7.5 (6.3-8.2) g/dL Albumin 4.4 (3.5-5.0) g/dL Amylase 58 (30-110) U/L Lipase 79 (23-300) U/L Serum HCG, Qual (NEGATIVE) Urine Color Yellow (Yellow) Urine Appearance Cloudy A (Clear) Urine pH 6.5 (4.6-8.0) Ur Specific [place] 1.020 (1.005-1.030) Urine Protein Negative (Negative) Urine Glucose (UA) Negative (Negative) mg/dL Urine Ketones Negative (Negative) Urine Blood Negative (Negative) Urine Nitrite Negative (Negative) Urine Bilirubin Negative (Negative) Urine Urobilinogen 0.2 (0.2) mg/dL Ur Leukocyte Esterase Small A (Negative) U Hyaline Cast (Auto) NONE SEEN (0-2) /LPF Urine Microscopic RBC 0-2 (0-5) /HPF Urine Microscopic WBC 21-50 A (0-5) /HPF Ur Epithelial Cells Few (None Seen) /HPF Urine Bacteria Many A (None Seen) /HPF Urine Culture Reflexed YES (NO) 05/22/24 Range/Units 02:15 WBC (3.98-10.04) x10^3/uL RBC (3.93-5.22) x10^6/uL Hgb (11.2-15.7) g/dL Hct (34.1-44.9) % MCV (79.4-94.8) fL MCH (25.6-32.2) pg MCHC (32.2-35.5) g/dL RDW (11.7-14.4) % Plt Count (182-369) x10^3/uL MPV (9.4-12.3) fL Gran % (34.0-71.1) % Immature Gran % (Auto) (0.001-0.429) % Nucleat RBC Rel Count (0.00-0.2) % Eos # (Auto) (0.04-0.36) x10^3/uL Immature Gran # (Auto) (0.001-0.031) x10^3u/L Absolute Lymphs (auto) (1.18-3.74) x10^3/uL Absolute Monos (auto) (0.24-0.86) x10^3/uL Absolute Nucleated RBC (0.00-0.012) x10^3u/L Lymphocytes % (19.3-51.7) % Monocytes % (4.7-12.5) % Eosinophils % (0.7-5.8) % Basophils % (0.1-1.2) % Absolute Granulocytes (1.56-6.13) x10^3/uL Basophils # (0.01-0.08) x10^3/uL Sodium (135-145) mmol/L Potassium (3.5-5.1) mmol/L Chloride (98-107) mmol/L Carbon Dioxide (22-30) mmol/L Anion Gap (5-15) MEQ/L BUN (7-17) mg/dL Creatinine (0.52-1.04) mg/dL Estimated GFR ML/MIN Glucose (74-106) mg/dL Calcium (8.4-10.2) mg/dL Magnesium (1.6-2.3) mg/dL Total Bilirubin (0.2-1.3) mg/dL AST (14-36) U/L ALT (0-35) U/L Alkaline Phosphatase (38-126) U/L Serum Total Protein (6.3-8.2) g/dL Albumin (3.5-5.0) g/dL Amylase (30-110) U/L Lipase (23-300) U/L Serum HCG, Qual NEGATIVE (NEGATIVE) Urine Color (Yellow) Urine Appearance (Clear) Urine pH (4.6-8.0) Ur Specific [place] (1.005-1.030) Urine Protein (Negative) Urine Glucose (UA) (Negative) mg/dL Urine Ketones (Negative) Urine Blood (Negative) Urine Nitrite (Negative) Urine Bilirubin (Negative) Urine Urobilinogen (0.2) mg/dL Ur Leukocyte Esterase (Negative) U Hyaline Cast (Auto) (0-2) /LPF Urine Microscopic RBC (0-5) /HPF Urine Microscopic WBC (0-5) /HPF Ur Epithelial Cells (None Seen) /HPF Urine Bacteria (None Seen) /HPF Urine Culture Reflexed (NO) - Radiology Exams Ordered Rad Exams-Entire Visit: Radiology Procedures Category Date Time Status ABDOMEN AND PELVIS W/0 CONTRAS [CT] Stat Exams 05/22/24 01:14 Completed ABDOMINAL-LIMITED [US] Routine Exams 05/22/24 05:48 Completed PELVIS TRANS VAGINAL [US] Routine Exams 05/22/24 06:38 Completed Discharge Exam General Appearance: no apparent distress Neurologic Exam: alert, oriented x 3, cooperative Eye Exam: PERRL Ears, Nose, Throat Exam: normal ENT inspection Neck Exam: normal inspection Respiratory Exam: normal breath sounds, lungs clear Cardiovascular Exam: regular rate/rhythm, normal heart sounds Gastrointestinal/Abdomen Exam: soft, normal bowel sounds, tenderness Rectal Exam: deferred Back Exam: normal inspection Extremity Exam: normal inspection Skin Exam: normal color Final Diagnosis/Problem List - Final Discharge Diagnosis/Problem (1) Acute cholecystitis Current Visit: Yes Status: Resolved Code(s): K81.0 - ACUTE CHOLECYSTITIS (2) Abdominal pain Current Visit: Yes Status: Acute Code(s): R10.9 - UNSPECIFIED ABDOMINAL PAIN (3) UTI (urinary tract infection) Current Visit: Yes Status: Acute Code(s): N39.0 - URINARY TRACT INFECTION, SITE NOT SPECIFIED (4) Vomiting Current Visit: Yes Status: Resolved Code(s): R11.10 - VOMITING, UNSPECIFIED - Discharge Discharge Date: 05/22/24 Disposition: Home, Self-Care Condition: Stable Prescriptions: New Cefdinir 300 mg PO BID 7 Days #14 cap Hydrocodone/Acetaminophen [Hydrocodone-Acetamin 5-325 mg] 1 tab PO Q4HPRN PRN 3 Days #18 tablet MDD 6 PRN Reason: Pain Follow up with: ZEINA CORNELL MD [ACTIVE STAFF] - 06/05/24 10:10 am ([facility])
[2024-05-22] MEDS: NORCO 5/325 MG PO PRN (16:26)
[2024-05-22 18:04] VITALS: BP 98/59; PULSE 68
[2024-05-22] MEDS ORDERED: ROCEPHIN 1 GM / 100 ML NaCl 1 GM/100 ML IVPB IV SCH (22:00)
--- NOTE | 2024-05-23 08:43 | OP ---
SURGERY DATE: 05/22/2024 [id number] PREOPERATIVE DIAGNOSIS: Acute cholecystitis. POSTOPERATIVE DIAGNOSIS: Acute cholecystitis. PROCEDURE PERFORMED: Laparoscopic cholecystectomy. SURGEON: Rohit Powell MD ANESTHESIA: General. ESTIMATED BLOOD LOSS: Minimal. PATIENT CONDITION: Stable. COMPLICATIONS: None. SPECIMENS: Gallbladder. HISTORY OF PRESENT ILLNESS: The patient presents with a few days of intermittent abdominal pain that became constant, severe, right upper quadrant. Exam with Delacruz's sign. Imaging showing stone at the neck of the gallbladder. I discussed with patient risk of infection, bleeding, injury to nearby structure, hernia, failure to resolve symptoms. Options were given, HIDA scan, possible outpatient cholecystectomy but she does want to proceed just with a cholecystectomy this admission. FINDINGS: Distended gallbladder, critical view. DESCRIPTION OF PROCEDURE AND FINDINGS: The patient was brought to the operating room. General anesthesia induced. Routinely positioned, prepped, and draped. Time-out performed. Received preoperative antibiotics. The Veress needle inserted left upper quadrant. Pneumoperitoneum established. A 5 mm Optiview trocar placed left upper quadrant. Abdomen was surveyed. A right paramedian 11 mm trocar placed. Two additional 5 mm trocars placed in the right upper quadrant. The patient was positioned. Gallbladder retracted. The gallbladder is tensely distended but able to be retracted. The cystic duct and cystic artery dissected out. The critical view was clearly obtained. Both were clipped with 5 mm metal clip industrial illuminating engineer and then, divided. Gallbladder was taken off the liver bed, placed in a specimen bag, removed through the 11 mm trocar site. Right upper quadrant reinspected. Clips are in good position. There is good hemostasis. It was irrigated, suctioned out. The 11 trocar site closed with 0 Vicryl interrupted suture passer. The right upper quadrant port was removed under direct visualization. The left upper quadrant port used for desufflation then removed. The skin was closed with 4-0 Vicryl suture. Steri-Strips and sterile dressings applied. All counts were correct. The patient tolerated the procedure well. Plan was for extubated.
== END 2024-05-22 18:05 | disposition home or self-care (01) ==
LOC: ED 23:58 → MED SURG 05-22 05:47
PROVIDERS: ADMIT Internal Medicine; ATTEND Internal Medicine
DX: K81.0 Acute cholecystitis (principal); R10.9 Unspecified abdominal pain; N39.0 Urinary tract infection, site not specified; R11.2 Nausea with vomiting, unspecified; N83.202 Unspecified ovarian cyst, left side
CPT/HCPCS: 36415; 74176; 76705; 76830; 80053; 81001; 82150; 83690; 83735; 84703; 85025; 87086; 96374; 96375; 99285; G0378; J0694; J0696; J1100; J1885; J2270; J2371; J2405; J2704; J3010; Q3014; A9270-GY